=== PATIENT | male | born 1950 | race Caucasian/White ===

== ENCOUNTER 2020-11-01 11:44 | Emergency (ER) | payer MEDICARE ==
--- NOTE | 2020-11-01 13:15 | EDM.PDOC ---
ED HPI GENERAL MEDICAL PROBLEM - General Chief Complaint: General Stated Complaint: BLOOD SUGAR 500 / LEIPHON REFERRED Time Seen by Provider: 11/01/20 12:50 Source of Information: Reports: Patient, Provider History Limitations: Reports: No Limitations - History of Present Illness INITIAL COMMENTS - FREE TEXT/NARRATIVE: This 70 yo male patient was sent to the ED from the [facility] due to an elevated blood sugar (486), elevated LFT's and weight loss. The provider reports that the patient is new to her practice and after assessing the patient and doing labs the provider believes the patient will not do well at home over the weekend. The provider did attempt to have the patient directly admitted to the hospital, but our hospital is not accepting any admissions at this time. The patient reports he has noticed reduced energy levels over the past month and has also noticed some numbness and tingling in his feet. The patient reports he is a smoker and has been smoking for a number of years. The patient reports he has no medical history. The patient reports his parents both had diabetes and were on medications for that. The patient reports he has been very busy lately due to taking care of his 4 year old granddaughter as well as taking care of his dog. The patient reports he did have a half of hamburger this morning prior to coming to the Clinic. Onset: Unknown/Unsure Duration: Constant, Getting Worse Location: Reports: Generalized Quality: Reports: Other Severity: Moderate Improves with: Reports: None Worsens with: Reports: None Context: Reports: Other Associated Symptoms: Reports: Weakness - Related Data Allergies Allergy/AdvReac Type Severity Reaction Status Date / Time No Known Allergies Allergy Verified 11/01/20 12:13 Past Medical History - Past Health History Medical/Surgical History: Denies Medical/Surgical History Social & Family History - Tobacco Use Tobacco Use Status *Q: Current Every Day Tobacco User Years of Tobacco use: 25 Packs/Tins Daily: 1 - Recreational Drug Use Recreational Drug Use: No ED ROS GENERAL - Review of Systems Review Of Systems: Comprehensive ROS is negative, except as noted in HPI. ED EXAM, GENERAL - Physical Exam Exam: See Below Exam Limited By: No Limitations General Appearance: Alert, WD/WN, Mild Distress Eye Exam: Bilateral Eye: EOMI, Normal Inspection, PERRL Ears: Normal External Exam, Normal Canal, Hearing Grossly Normal, Normal TMs Nose: Normal Inspection, Normal Mucosa, No Blood Throat/Mouth: Normal Inspection, Normal Lips, Normal Teeth, Normal Gums, Normal Oropharynx, Normal Voice, No Airway Compromise Head: Atraumatic, Normocephalic Neck: Normal Inspection, Supple, Non-Tender, Full Range of Motion Respiratory/Chest: No Respiratory Distress, Lungs Clear, Normal Breath Sounds, No Accessory Muscle Use, Chest Non-Tender Cardiovascular: Normal Peripheral Pulses, Regular Rate, Rhythm, No Edema, No Gallop, No JVD, No Murmur, No Rub GI/Abdominal: Normal Bowel Sounds, Soft, Non-Tender, No Organomegaly, No Distention, No Abnormal Bruit, No Mass (Male) Exam: Deferred Rectal (Males) Exam: Deferred Back Exam: Normal Inspection, Full Range of Motion, NT Extremities: Normal Inspection, Normal Range of Motion, Non-Tender, Normal Capillary Refill, No Pedal Edema Neurological: Alert, Oriented, CN II-XII Intact, Normal Cognition, Normal Gait, Normal Reflexes, No Motor/Sensory Deficits Psychiatric: Normal Affect, Normal Mood Skin Exam: Warm, Dry, Intact, Normal Color, No Rash Lymphatic: No Adenopathy Course - Vital Signs Last Recorded V/S: Last Vital Signs Temp 97.2 F 11/01/20 12:14 Pulse 77 11/01/20 12:14 Resp 20 11/01/20 12:14 BP 125/88 11/01/20 12:14 Pulse Ox 100 11/01/20 12:14 - Orders/Labs/Meds Orders: Active Orders 24 hr Category Date Time Status Blood Glucose Check, Bedside [RC] ONETIME Care 11/01/20 12:36 Ordered Labs: Laboratory Tests 11/01/20 11/01/20 11/01/20 Range/Units 12:42 13:02 13:12 ABG pH 7.40 (7.35-7.45) ABG pCO2 43 (35-45) mmHg ABG pO2 74 (70-100) mmHg ABG HCO3 26.0 (22-26) mmol/L ABG O2 Saturation 98 (95-100) % ABG Base Excess 1 ((-2)-(+3)) mmol/L Wyatt Test Positive O2 Delivery Device Room air POC Glucose 442 H* (70-99) mg/dL Ketones Negative - Re-Assessments/Exams Free Text/Narrative Re-Assessment/Exam: 11/01/20 14:13 Discussed the lab results along with education regarding diabetes and elevated blood sugar levels. The patient did not want to be transferred to another facility for treatment. There is no beds available in our facility at this time. Departure - Departure Time of Disposition: 14:09 Disposition: Home, Self-Care 01 Condition: Fair Clinical Impression: Hyperglycemia, Elevated LFTs - Discharge Information Instructions: Hyperglycemia, [id number] Forms: ED Department Discharge Care Plan Goals: The patient and his daughter were advised of the examination and lab results during the visit. The patient is not currently in diabetic ketoacidosis and does not want to be transferred or admitted to a hospital at this time. The patient was discharged with a script for Metformin (500 mg) #30 to take 1 by mouth 2 times per day. The patient should follow-up with his primary care facility for continued evaluation and further treatment. If the patient has any additional symptoms or concerns, the patient should either return to the emergency department or visit his primary care facility. Sepsis Event Note (ED) - Evaluation Sepsis Screening Result: No Definite Risk - Focused Exam Vital Signs: Vital Signs Temp Pulse Resp BP Pulse Ox 11/01/20 12:14 97.2 F 77 20 125/88 100 - My Orders Last 24 Hours: My Active Orders 11/01/20 12:36 Blood Glucose Check, Bedside [RC] ONETIME - Assessment/Plan Last 24 Hours: My Active Orders 11/01/20 12:36 Blood Glucose Check, Bedside [RC] ONETIME
[2020-11-01 13:17] LABS: ALLEN TEST POSITIVE; BASE EXCESS ARTERIAL 1 mmol/L ((-2)-(+3)); O2 DELIVERY DEVICE ROOM AIR; O2 SATURATION ARTERIAL 98 % (95-100); PCO2 ARTERIAL 43 mmHg (35-45); PO2 ARTERIAL 74 mmHg (70-100)
== END 2020-11-01 14:34 | disposition home or self-care (01) ==
LOC: DL.ED 11:44
DX: R79.89 Other specified abnormal findings of blood chemistry (principal); F17.200 Nicotine dependence, unspecified, uncomplicated
CPT/HCPCS: 36415; 36600; 82009; 82803; 82947; 99284

== ENCOUNTER 2022-04-20 16:38 | Emergency (ER) | payer MEDICARE ==
[2022-04-20] MEDS ORDERED: Sodium Chloride 0.9% 10 ML Syringe FLUSH PRN (17:38)
[2022-04-20] MEDS ORDERED: Sodium Chloride 0.9% 1,000 ML IV ONE (17:39)
[2022-04-20] MEDS ORDERED: Ondansetron 4 MG/2 ML SDV IVPUSH ONE (17:39)
[2022-04-20 18:25] LABS: ANION GAP 11.1 mEq/L (7-13); CHLORIDE,CL 95 mmol/L (98-107); ESTIMATED GFR 86 mL/min (>=60); SODIUM,NA 133 mmol/L (136-145)
[2022-04-20 18:41] LABS: CORONAVIRUS COVID-19 NAA NEGATIVE (NEGATIVE)
== END 2022-04-20 20:12 ==
LOC: DL.ED 16:38
DX: L03.116 Cellulitis of left lower limb (principal); L97.524 Non-pressure chronic ulcer of other part of left foot with necrosis of bone; Z79.899 Other long term (current) drug therapy; Z20.822 Contact with and (suspected) exposure to COVID-19
CPT/HCPCS: 0240U; 36415; 73700; 80053; 83605; 83735; 84145; 85025; 86140; 87040; 87070; 87077; 87186; 96361; 96365; 96375; 99285; J2405; J3370; J3490; J7030; J7050

== ENCOUNTER 2024-04-19 23:25 | Emergency (ER) | payer MEDICARE ==
[2024-04-20] MEDS: Cefuroxime 250 MG Tab PO ONE (00:15)
[2024-04-20] MEDS: Doxycycline Monohydrate 100 MG Cap PO ONE (00:15)
[2024-04-20] MEDS: Bacitracin Oint 1 GM U/D Packet TOP ONE (00:17)
== END 2024-04-20 00:27 | disposition home or self-care (01) ==
LOC: DL.ED 23:25
DX: L03.032 Cellulitis of left toe (principal); E11.9 Type 2 diabetes mellitus without complications; Z79.4 Long term (current) use of insulin
CPT/HCPCS: 73660-TA; 99283; A9270-GY

== ENCOUNTER 2024-07-10 09:45 | Inpatient (IN) | payer MEDICARE ==
[2024-07-10 10:14] LABS: BASOPHILS PERCENT AUTO 0.5 % (0.0-1.0); EOSINOPHILS PERCENT AUTO 2.9 % (1.0-3.0); HEMOGLOBIN 13.4 g/dL (14.0-18.0); LYMPHOCYTES PERCENT AUTO 25.3 % (20.5-50.1); MEAN CORPUSCULAR HEMOGLOBIN 32.7 pg (27.0-34.0); MEAN CORPUSCULAR HGB CONC 33.5 g/dL (33.0-35.0); MEAN CORPUSCULAR VOLUME 97.6 fL (80-100); MONOCYTES PERCENT AUTO 12.9 % (2-8); NEUTROPHILS PERCENT AUTO 58.4 % (42.2-75.2); PLATELET COUNT,PLT 116 10^3/uL (150-450); WHITE BLOOD CELL COUNT,WBC 5.5 10^3/uL (5.0-10.0)
[2024-07-10 10:36] LABS: ALBUMIN 3.9 g/dL (3.4-5.0); ANION GAP 11.8 mEq/L (7-13); BILIRUBIN DIRECT 0.2 mg/dL (0.0-0.2); BILIRUBIN INDIRECT 0.5; BILIRUBIN TOTAL 0.7 mg/dL (0.2-1.0); CALCIUM 9.3 mg/dL (8.5-10.1); CREATININE 0.96 mg/dL (0.70-1.30); EST CRCL DRUG DOSING (CG) 74.75 mL/min; POTASSIUM,K 3.8 mmol/L (3.5-5.1); PROTEIN TOTAL,TP 7.7 g/dL (6.4-8.2)
[2024-07-10] MEDS: Iopamidol 612 MG/ML 100 ML Bottle IVPUSH ONE (10:48)
[2024-07-10] MEDS: Iopamidol 755 Mg/ML 100 ML Bottle IVPUSH ONE (10:57)
[2024-07-10] MEDS: Aspirin 325 MG Tab PO ONE (12:14)
[2024-07-10] MEDS ORDERED: Ondansetron 4 MG/2 ML SDV IVPUSH PRN (14:43)
[2024-07-10] MEDS ORDERED: Sennosides/Docusate Sodium 50-8.6 MG Tab PO PRN (14:43)
[2024-07-10] MEDS ORDERED: Polyethylene Glycol 3350 Powder 17 GM Packet PO PRN (14:43)
[2024-07-10] MEDS ORDERED: Docusate Sodium 100 MG Cap PO PRN (14:43)
[2024-07-10] MEDS ORDERED: Sodium Chloride 0.9% 10 ML Syringe FLUSH PRN (14:43)
[2024-07-10] MEDS ORDERED: Albuterol/Ipratropium 3.0-0.5 MG/3 ML Neb Soln NEB PRN (14:43)
[2024-07-10] MEDS ORDERED: Acetaminophen/HYDROcodone 325-5 MG Tab PO PRN (14:43)
[2024-07-10] MEDS ORDERED: Glucagon,Human Recombinant 1 MG Vial IM PRN (15:04)
[2024-07-10] MEDS ORDERED: 50% Dextrose in Water 50 ML Syringe IVPUSH PRN (15:04)
[2024-07-10] MEDS: Insulin Lispro 100 Units/ML 3 ML Vial SUBCUT SCH (17:18)
[2024-07-10] MEDS: Acetaminophen 325 MG Tab PO PRN (17:20)
[2024-07-10] MEDS: Clopidogrel 75 MG Tab PO ONE (21:44)
[2024-07-10] MEDS: Melatonin 3 MG Tab PO PRN (21:44)
[2024-07-10] MEDS: Insulin Glarg,Human.Rec.Analog 100 Unit/ML 10 ML Vial SUBCUT SCH (21:46)
[2024-07-10] MEDS: Sodium Chloride 0.9% 10 ML Syringe FLUSH SCH (21:48)
[2024-07-11 06:24] LABS: BASOPHILS PERCENT AUTO 0.3 % (0.0-1.0); EOSINOPHILS PERCENT AUTO 3.1 % (1.0-3.0); HEMATOCRIT 36.7 % (40.0-54.0); LYMPHOCYTES PERCENT AUTO 32.3 % (20.5-50.1); MEAN CORPUSCULAR HEMOGLOBIN 32.3 pg (27.0-34.0); MEAN CORPUSCULAR HGB CONC 32.7 g/dL (33.0-35.0); MEAN CORPUSCULAR VOLUME 98.7 fL (80-100); MONOCYTES PERCENT AUTO 14.9 % (2-8); NEUTROPHILS PERCENT AUTO 49.4 % (42.2-75.2); PLATELET COUNT,PLT 86 10^3/uL (150-450); RED BLOOD CELL COUNT 3.72 10^6/uL (4.6-6.2); WHITE BLOOD CELL COUNT,WBC 3.5 10^3/uL (5.0-10.0)
[2024-07-11 06:42] LABS: PROTHROMBIN TIME 10.1 SEC (9.0-12.0); PTT,PARTIAL THROMBOPLSTIN TIME 24.4 SEC (22.0-34.0)
[2024-07-11 07:00] LABS: ALANINE AMINOTRANSFERASE,ALT 16 U/L (16-63); ALBUMIN 3.3 g/dL (3.4-5.0); ALKALINE PHOSPHATASE 57 U/L (46-116); ANION GAP 12.3 mEq/L (7-13); ASPARTATE AMNIOTRANSFERASE,AST 13 U/L (15-37); BILIRUBIN TOTAL 0.4 mg/dL (0.2-1.0); BLOOD UREA NITROGEN,BUN 22 mg/dL (7-18); CALCIUM 8.7 mg/dL (8.5-10.1); CARBON DIOXIDE,CO2 30 mmol/L (21-32); CHLORIDE,CL 101 mmol/L (98-107); CHOLESTEROL HDL 48 mg/dL (40-59); CHOLESTEROL LDL CALCULATED 94 mg/dL (0-100); CHOLESTEROL TOTAL 158 mg/dL (0-199); CREATININE 0.88 mg/dL (0.70-1.30); GLUCOSE RANDOM 266 mg/dL (70-99); POTASSIUM,K 4.3 mmol/L (3.5-5.1); PROTEIN TOTAL,TP 6.6 g/dL (6.4-8.2); SODIUM,NA 139 mmol/L (136-145); TRIGLYCERIDES 82 mg/dL (0-149)
[2024-07-11 07:01] LABS: HEMOGLOBIN A1C 8.4 % (<5.7)
[2024-07-11 07:04] LABS: C-REACTIVE PROTEIN < 0.50 ng/dL (<=0.50); ESTIMATED GFR 91 mL/min (>=60)
[2024-07-11 07:12] LABS: SEDIMENTATION RATE MANUAL 8 mm/hr (0-15)
[2024-07-11] MEDS: Clopidogrel 75 MG Tab PO SCH (09:14)
[2024-07-11] MEDS: FLU (Fluarix Triv) TS24-25(6MOS UP)/PF 45 MCG/0.5 ML Syringe IM ONE (10:09)
[2024-07-11] MEDS ORDERED: Aspirin 81 MG Tab.Chew PO SCH (21:00)
== END 2024-07-11 12:20 | disposition home or self-care (01) | DRG 74 ==
LOC: DL.ED 09:45 → DL.MS 12:16
PROVIDERS: ADMIT Internal Medicine; ATTEND Student in an Organized Health Care Education/Training Program
DX: I63.9 Cerebral infarction, unspecified (principal); G51.0 Bell's palsy; E11.40 Type 2 diabetes mellitus with diabetic neuropathy, unspecified; F17.210 Nicotine dependence, cigarettes, uncomplicated; F15.90 Other stimulant use, unspecified, uncomplicated; D64.9 Anemia, unspecified; D69.6 Thrombocytopenia, unspecified; E88.09 Other disorders of plasma-protein metabolism, not elsewhere classified; R53.1 Weakness; H10.11 Acute atopic conjunctivitis, right eye; D72.819 Decreased white blood cell count, unspecified; Z79.4 Long term (current) use of insulin; Z89.422 Acquired absence of other left toe(s)
CPT/HCPCS: 36415; 70450; 70496; 70498; 71045; 80048; 80076; 82947; 84484; 85025; 93005; A9270; Q9967; 70551; 80053; 80061; 83036; 83735; 85610; 85651; 85730; 86140; 86618; 90656; 93010; 93306; 97165-GO; 99223; 99238; 99285; G0008; J1815-GY